=== PATIENT | female | born 1960 | race Caucasian/White ===

== ENCOUNTER 2019-02-20 22:45 | Emergency (ER) | payer BC ==
[~2019-02-20] VITALS: Ht 172.7 cm; Wt 83.9 kg
[2019-02-20 22:54] VITALS: BP 108/62
[2019-02-20] MEDS ORDERED: IBUPROFEN 600 MG TABLET. PO ONE (23:45)
--- NOTE | 2019-02-20 23:52 | PHYS DOC ---
Past History Past Medical History: High Cholesterol Past Surgical History: Hip Replacement Alcohol Use: Occasionally Drug Use: None Adult General Chief Complaint Chief Complaint: WRIST PAIN HPI HPI 58-year-old female presents with left wrist pain. The patient was pulling an item out of the way in the garage, when it gave way and she fell over backwards. She stuck her left hand behind her as she fell. She immediately felt pain and noticed deformity so she came to the ED. The patient also has some mild buttocks pain, but is able to ambulate. She believes this is just bruised. She denies any other injuries or complaints. Review of Systems Review of Systems Constitutional: Denies fever or chills [] Eyes: Denies change in visual acuity, redness, or eye pain [] HENT: Denies nasal congestion or sore throat [] Respiratory: Denies cough or shortness of breath [] Cardiovascular: No additional information not addressed in HPI [] GI: Denies abdominal pain, nausea, vomiting, bloody stools or diarrhea [] : Denies dysuria or hematuria [] Musculoskeletal: left wrist pain [] Integument: Denies rash or skin lesions [] Neurologic: Denies headache, focal weakness or sensory changes [] Endocrine: Denies polyuria or polydipsia [] All other systems were reviewed and found to be within normal limits, except as documented in this note. Current Medications Current Medications Current Medications Medications (Trade) Dose Ordered Sig/[facility] Start Time Stop Time Status Last Admin Dose Admin Ibuprofen (Motrin) 600 mg 1X ONCE 02/20/19 23:45 02/20/19 23:46 Allergies Allergies Allergies Coded Allergies Type Severity Reaction Last Updated Verified codeine Allergy Mild VOMITING 02/20/19 Yes Physical Exam Physical Exam Constitutional: Well developed, well nourished, no acute distress, non-toxic appearance. [] HENT: Normocephalic, atraumatic, bilateral external ears normal, oropharynx moist, no oral exudates, nose normal. [] Eyes: PERRLA, EOMI, conjunctiva normal, no discharge. [] Neck: Normal range of motion, no tenderness, supple, no stridor. [] Cardiovascular:Heart rate regular rhythm, no murmur [] Lungs & Thorax: Bilateral breath sounds clear to auscultation [] Abdomen: Bowel sounds normal, soft, no tenderness, no masses, no pulsatile masses. [] Skin: Warm, dry, no erythema, no rash. [] Back: No tenderness, no CVA tenderness. [] Extremities: Left wrist tenderness and swelling, obvious deformity, no open wound[] Neurologic: Alert and oriented X 3, normal motor function, normal sensory function, no focal deficits noted. [] Psychologic: Affect normal, judgement normal, mood normal. [] Current Patient Data Vital Signs Vital Signs Date Time Temp Pulse Resp B/P (MAP) Pulse Ox O2 Delivery O2 Flow Rate FiO2 02/20/19 22:54 97.7 54 18 99 Room Air EKG EKG [] Radiology/Procedures Radiology/Procedures [] Course & Med Decision Making Course & Med Decision Making Pertinent Labs and Imaging studies reviewed. (See chart for details) The patient has a fracture of the left distal radius and ulna. We will place her in a sugar tong splint. She will call her orthopedic surgeon to discuss definitive management of this week. The patient does not tolerate narcotic pain medication and does not want any. We gave her 600 mg of ibuprofen in the ED. She is stable for discharge at this time. [] Dragon Disclaimer Dragon Disclaimer This electronic medical record was generated, in whole or in part, using a voice recognition dictation system. Departure Departure: Impression: Primary Impression: Radius and ulna distal fracture Disposition: 01 HOME, SELF-CARE Condition: STABLE Referrals: DINESH NEWELL MD (PCP) Patient Instructions: Wrist Fracture, [id number] Additional Instructions: Least call your orthopedic surgeon to discuss a follow-up appointment and management of your fracture. Problem Qualifiers Primary Impression: Radius and ulna distal fracture Encounter type: initial encounter Fracture type: closed Laterality: left Qualified Codes: S52.502A - Unspecified fracture of the lower end of left radius, initial encounter for closed fracture; S52.602A - Unspecified fracture of lower end of left ulna, initial encounter for closed fracture GISELLE MONTGOMERY DO February 20, 2019 23:52
--- NOTE | 2019-02-21 06:02 | RAD ---
Indication:Fall. TECHNIQUE: 3 views of left wrist COMPARISON: None FINDINGS/ impression: Fracture of the distal radius with extension to the radiocarpal joint and dorsal angulation. Mild displaced fracture of the ulnar styloid process. Wrist edema. Electronically signed by: Harinder Frye DO (02/21/2019 5:59 AM) [facility] [id number]
== END 2019-02-21 | disposition home or self-care (01) ==
LOC: ER 22:45
DX: S52.502A Unspecified fracture of the lower end of left radius, initial encounter for closed fracture (principal); S52.602A Unspecified fracture of lower end of left ulna, initial encounter for closed fracture; M54.5 Low back pain; E78.00 Pure hypercholesterolemia, unspecified; Z88.5 Allergy status to narcotic agent; W18.39XA Other fall on same level, initial encounter; Y93.89 Activity, other specified; Y92.59 Other trade areas as the place of occurrence of the external cause; Y99.8 Other external cause status
CPT/HCPCS: 29125; 73110; 99284